=== PATIENT | male | born 2005 | race Two or more races ===

== ENCOUNTER 2025-05-24 15:37 | Emergency (ER) | payer MEDICAID, SELFPAY ==
[2025-05-24 15:56] VITALS: BP 145/91; PULSE 73; RESP 18; TEMP 37.1; O2SAT 98
--- NOTE | 2025-05-24 16:05 | PD.EDEYE ---
ED Eye Problem RME/HPI General Chief complaint: Eye Problems Stated complaint: SWOLLEN L) EYE, SOB Time Seen by Provider: 05/24/25 16:04 Arrival date/time: 05/24/25 15:37 20-year-old male presents to the department due to complaints of swelling left upper eyelid and left side of his face patient reports believes he was stung by something while working today Limitations: no limitations Related Data Home Medications ?Medication ?Instructions ?Recorded ?Confirmed lisinopril 5 mg tablet 5 mg PO QDAY #0 tabs 11/02/16 03/14/18 fluconazole 200 mg tablet 400 mg PO QDAY 03/12/18 03/14/18 hydroxychloroquine 200 mg tablet 300 mg PO QDAY 03/12/18 03/14/18 gabapentin 100 mg capsule 100 mg PO HS 10/18/18 Methotrexate 06/13/19 methotrexate 2.5 mg/mL oral 06/13/19 solution Previous Rx's ?Medication ?Instructions ?Recorded diphenhydramine HCl 25 mg capsule 25 mg PO Q8H PRN allergic symptoms 05/24/25 (Benadryl) #30 caps erythromycin 5 mg/gram (0.5 %) eye 1.25 cm ophthalmic (eye) QID 7 05/24/25 ointment days #3.5 grams prednisone 20 mg tablet 20 mg PO BID 3 days #6 tabs 05/24/25 Allergies Allergy/AdvReac Type Severity Reaction Status Date / Time amoxicillin trihydrate Allergy Mild RASH, Verified 05/24/25 15:40 ITCHING potassium clavulanate Allergy Mild RASH, Verified 05/24/25 15:40 ITCHING Review of Systems Review of Systems Systems Reviewed: All systems reviewed, normal except as documented Constitutional Constitutional: Reports system reviewed and no additional complaints, except as documented, Denies fever(s) and Denies headache(s) Eyes Eyes: Reports system reviewed and no additional complaints, except as documented, Denies blurry vision and Reports other (Patient report swelling around the eye) ENT Ears, Nose, Mouth, and Throat: Reports system reviewed and no additional complaints, except as documented, Denies headache(s), Denies nasal congestion and Denies nasal discharge Cardiovascular Cardiovascular: Reports system reviewed and no additional complaints, except as documented, Denies chest pain and Denies dyspnea Respiratory Respiratory: Reports system reviewed and no additional complaints, except as documented, Denies chest congestion, Denies cough and Denies dyspnea Gastrointestinal Gastrointestinal: Reports system reviewed and no additional complaints, except as documented and Denies abdominal pain Integumentary/Breasts Skin/Breast: Reports system reviewed and no additional complaints, except as documented and Denies rash Neurologic Neurologic: Reports system reviewed and no additional complaints, except as documented, Reports as per HPI and Denies headache(s) Past Medical History Past Medical History CARDIAC: Positive Cardiac Disorders and Hypertension; Negative Congestive Heart Failure RESPIRATORY: Negative Chronic Obstructive Pulmonary Disease (COPD) GENITOURINARY: Negative Renal Disease ENDOCRINE: Positive Systemic Lupus Erythematosus; Negative Diabetes Mellitus Type 1 or Diabetes Mellitus Type 2 Social History SMOKING STATUS: Never smoker ED Exam General Limitations: Present no limitations General appearance: Present alert and in no apparent distress Head Head exam: Present atraumatic Eye Eye exam: Present normal appearance, PERRL, EOMI and other (No difficulty with vision); Absent conjunctival injection ENT ENT exam: Present normal exam, normal oropharynx and mucous membranes moist Neck Neck exam: Present normal inspection, full ROM and trachea midline Chest Chest inspection: Present normal inspection and symmetric chest wall rise Respiratory Respiratory exam: Present normal lung sounds bilaterally Cardiovascular Cardiovascular exam: Present regular rate, normal rhythm and normal heart sounds Abdominal Exam Abdominal exam: Present soft and normal bowel sounds Extremities Exam Extremities exam: Present normal inspection and full ROM Back Exam Back exam: Present normal inspection and full ROM Neurological Exam Neurological exam: Present alert, oriented X3 and CN II-XII intact Psychiatric Psychiatric exam: Present normal affect and normal mood Skin Skin exam: Present warm, dry, intact and normal color Course Quality Measures none Vital Signs Vital signs: Vital Signs Temperature 98.7 F 05/24/25 15:56 Pulse Rate 73 05/24/25 15:56 Respiratory Rate 18 05/24/25 15:56 Blood Pressure 145/91 H 05/24/25 15:56 Pulse Oximetry (%) 98 05/24/25 15:56 Oxygen Delivery Method Room Air 05/24/25 15:56 O2 saturation 98% room air within the limits Eye MDM Narrative MDM Narrative:: 20-year-old male presents to the department due to complaints of swelling left upper eyelid and left side of his face patient reports believes he was stung by something while working today On exam patient well-appearing patient does not appear ill or toxic no acute distress Exam patient has no appreciable swelling at this time Patient was treated Benadryl, steroids and erythromycin cream Patient has no evidence of anaphylaxis no difficulty breathing or swallowing no throat swelling Explained the patient should symptoms persist or worsen he should return for reevaluation Patient data External records reviewed:: [facility] previous records Clinical information provided by:: patient Social determinants that could affect healthcare access:: none Patient has the following chronic illnesses:: None How is presenting disease/condition affected by chronic disease/condition?: no chronic disease Evaluation data The following diagnostics were reviewed and interpreted by me:: other (specify) (N/A) Lab and/or radiology exams considered but not ordered:: Considered not indicated Interpretation Summary: N/A Medications / Prescriptions Medications or Prescriptions considered but not ordered:: Given Medication administrations:: Given Consultations Consultation(s) initiated? (list below): No Diagnosis Eye Problem Differential Diagnosis: other (Facial swelling, cellulitis, abscess, insect bite) Most likely diagnosis given after review of the tests above:: Facial swelling Admission Indicated Admission indicated?: not indicated Admission Request Was there a request for admission?: No Disposition Plan Disposition Plan: Discharge Discharge Attestation Discharge Attestation: The patient and all family members were given an opportunity to ask questions and understood the discharge instructions. Discharge instructions specifically effects, indications for sooner follow up or return to the emergency department, and the expected course of current diagnosis. Patient condition: Stable Discharge Plan Plan Patient Disposition: HOME (Self Care) Discharge Disposition comment: Stable Prescriptions/Referrals Prescriptions/Med Rec: New erythromycin 5 mg/gram (0.5 %) ointment 1.25 cm OPHTHALMIC QID 7 Days Qty: 3.5 0RF prednisone 20 mg tablet 20 mg PO BID 3 Days Qty: 6 0RF diphenhydramine HCl [Benadryl] 25 mg capsule 25 mg PO Q8H PRN (Reason: allergic symptoms) Qty: 30 0RF No Action gabapentin 100 mg capsule 100 mg PO HS fluconazole 200 mg tablet 400 mg PO QDAY hydroxychloroquine 200 mg tablet 300 mg PO QDAY lisinopril 5 MG tablet 5 mg PO QDAY Qty: 0 methotrexate 2.5 mg/mL Solution Methotrexate Problem List Clinical Impression: Facial swelling Patient/Caregiver Discharge Instructions Additional Instructions: Please follow up with your primary care doctor in the next 24-48hrs for any worsening symptoms return here immediately Print Language: Bulgarian Stand Alone Forms: Drip In Award Info., Work/School Release, Patient Portal Info Letter PA/NEWSPAPER DELIVERY COUNSELOR Supervising Physician PA/NEWSPAPER DELIVERY COUNSELOR Supervising Physician: dr [email or web address]
== END 2025-05-24 16:59 | disposition home or self-care (01) ==
LOC: SERX 16:14
PROVIDERS: Emergency Provider Emergency Medicine
DX: H02.844 Edema of left upper eyelid (principal)
CPT/HCPCS: 99281